=== PATIENT | female | born 1985 | race Caucasian/White ===

== ENCOUNTER 2017-09-25 16:44 | Emergency (ER) | payer OTHER ==
[~2017-09-25] VITALS: Ht 157.5 cm; Wt 140.6 kg
[~2017-09-25 16:44] MED LIST: IBUPROFEN800 MG PO; KETO10TA2 PO
== END 2017-09-25 21:12 | disposition home or self-care (01) ==
LOC: ER 16:44
DX: K29.70 Gastritis, unspecified, without bleeding (principal)